=== PATIENT | male | born 1955 | race Caucasian/White ===

== ENCOUNTER 2016-10-24 13:37 | Outpatient (CLI) | payer MEDICAID ==
[2016-10-24 21:09] LABS: BASOPHILS # (AUTO) 0.1 10^3/uL (0.0-0.1); BASOPHILS % (AUTO) 1.3 %; EOSINOPHILS # (AUTO) 0.4 10^3/uL (0.0-0.7); EOSINOPHILS % (AUTO) 6.1 %; HCT - HEMATOCRIT 39.6 % (42.0-52.0); HGB - HEMOGLOBIN 13.4 g/dL (14.0-18.0); LYMPHOCYTES % (AUTO) 27.1 %; MEAN CORPUSCULAR HEMOGLOBIN 31.9 pg (27.0-31.0); MEAN CORPUSCULAR HGB CONC 33.9 g/dL (32.0-36.0); MEAN CORPUSCULAR VOLUME 94.1 fL (80.0-94.0); MEAN PLATELET VOLUME 8.4 fL (7.4-11.4); MONOCYTES # (AUTO) 0.5 10^3/uL (0.0-1.0); MONOCYTES % (AUTO) 6.6 %; NEUTROPHILS # (AUTO) 4.4 10^3/uL (1.5-6.6); NEUTROPHILS % (AUTO) 58.9 %; RED BLOOD COUNT 4.21 10^6/uL (4.70-6.10); RED CELL DISTRIBUTION WIDTH 13.6 % (12.0-15.0); UNCORRECTED WHITE BLOOD COUNT 7.4 x10^3/uL; WHITE BLOOD COUNT 7.4 x10^3/uL (4.8-10.8)
[2016-10-24 21:20] LABS: ALBUMIN/GLOBULIN RATIO 1.7 (1.0-2.2); BILIRUBIN,TOTAL 1.2 mg/dL (0.2-1.0); BUN - BLOOD UREA NITROGEN 16 mg/dL (6-20); CALCIUM 9.4 mg/dL (8.5-10.3); CARBON DIOXIDE - CO2 24 mmol/L (21-32); CHLORIDE 104 mmol/L (101-111); CHOL/HDL RATIO 2.5 (<5.0); CHOLESTEROL 108 mg/dL; CREATININE 0.8 mg/dL (0.6-1.2); GFR - MDRD 99 (>89); GLUCOSE 109 mg/dL (70-100); HDL CHOLESTEROL 43 mg/dL; LDL/HDL RATIO 1.3 (<3.6); POTASSIUM 3.7 mmol/L (3.5-5.0); SODIUM 137 mmol/L (135-145); TOTAL PROTEIN 7.3 g/dL (6.7-8.2); TRIGLYCERIDES 51 mg/dL; VLDL CHOLESTEROL 10 mg/dL
== END 2016-10-24 13:38 | disposition home or self-care (01) ==
LOC: LAB.N 13:37
PROVIDERS: ATTEND Family Medicine
DX: Z51.81 Encounter for therapeutic drug level monitoring (principal); E78.5 Hyperlipidemia, unspecified; F32.9 Major depressive disorder, single episode, unspecified
CPT/HCPCS: 36415; 80050; 80061

== ENCOUNTER 2017-03-15 15:04 | Outpatient (CLI) | payer MEDICAID ==
--- NOTE | 2017-03-16 10:52 | XRAY Report ---
DATE OF SERVICE: 03/15/2017 THREE VIEW LEFT SHOULDER: 03/15/2017 CLINICAL INDICATION: Shoulder pain. FINDINGS: Frontal, oblique, and scapular Y views of the left shoulder demonstrate moderate osteoarthritis of the glenohumeral joint. The humeral head appears high riding, suggestive of chronic rotator cuff tear, and there appears to be a Hill-Sachs deformity of the humeral head, compatible with previous dislocation. There is no evidence of acute fracture or dislocation. No radiopaque foreign body is seen in the soft tissues. IMPRESSION: DEGENERATIVE CHANGES AND LIKELY CHRONIC ROTATOR CUFF TEAR. TD: 03/16/2017 11:51
--- NOTE | 2017-03-16 10:53 | XRAY Report ---
DATE OF SERVICE: 03/15/2017 THREE VIEW CERVICAL SPINE: 03/15/2017 CLINICAL INDICATION: Chronic pain. FINDINGS: AP, lateral, odontoid views of the cervical spine demonstrate moderate degenerative disk and facet disease. There is no evidence of acute fracture or subluxation. The prevertebral soft tissues are unremarkable. IMPRESSION: MODERATE DEGENERATIVE DISK AND FACET DISEASE. TD: 03/16/2017 11:52
--- NOTE | 2017-03-16 10:55 | XRAY Report ---
DATE OF SERVICE: 03/15/2017 THREE VIEW THORACIC SPINE: 03/15/2017 CLINICAL INDICATION: Chronic back pain. FINDINGS: AP, lateral, swimmer's views of the thoracic spine demonstrate moderate degenerative disk disease. Minimal degenerative dextroscoliosis is present. There is no evidence of compression fracture. No paraspinal hematoma is seen. IMPRESSION: MODERATE DEGENERATIVE DISK DISEASE. TD: 03/16/2017 11:54
--- NOTE | 2017-03-16 10:56 | XRAY Report ---
DATE OF SERVICE: 03/15/2017 THREE VIEW LUMBAR SPINE: 03/15/2017 CLINICAL INDICATION: Chronic back pain. FINDINGS: AP, lateral, and coned down views of the lumbar spine demonstrate moderate degenerative disk and facet disease. Disk space narrowing is worst at L4-L5. There is no evidence of compression fracture or subluxation. IMPRESSION: MODERATE DEGENERATIVE CHANGES. TD: 03/16/2017 11:55
== END 2017-03-15 15:05 | disposition home or self-care (01) ==
LOC: DI 15:04
PROVIDERS: ATTEND Family Medicine
DX: M19.012 Primary osteoarthritis, left shoulder (principal); M50.30 Other cervical disc degeneration, unspecified cervical region; M47.892 Other spondylosis, cervical region; M51.34 Other intervertebral disc degeneration, thoracic region; M51.36 Other intervertebral disc degeneration, lumbar region; M47.896 Other spondylosis, lumbar region
CPT/HCPCS: 72040; 72070; 72100

== ENCOUNTER 2018-01-17 13:24 | Outpatient (CLI) | payer MEDICAID ==
[2018-01-17 20:14] LABS: HB2 TOTAL 16.4 g/dL; HEMOGLOBIN A1C 0.68 g/dL; HEMOGLOBIN A1C % 5.9 % (4.6-6.2)
== END 2018-01-17 23:59 ==
LOC: LAB.N 13:24
PROVIDERS: ATTEND Family Medicine
DX: I10 Essential (primary) hypertension (principal); D53.9 Nutritional anemia, unspecified; Z51.81 Encounter for therapeutic drug level monitoring; F20.0 Paranoid schizophrenia
CPT/HCPCS: 36415; 83036

== ENCOUNTER 2019-01-02 15:01 | Outpatient (CLI) | payer MEDICAID ==
[2019-01-02 18:53] LABS: BASOPHILS # (AUTO) 0.1 10^3/uL (0.0-0.1); BASOPHILS % (AUTO) 1.3 %; EOSINOPHILS # (AUTO) 0.3 10^3/uL (0.0-0.7); EOSINOPHILS % (AUTO) 5.7 %; HGB - HEMOGLOBIN 12.5 g/dL (14.0-18.0); LYMPHOCYTES # (AUTO) 1.8 10^3/uL (1.5-3.5); LYMPHOCYTES % (AUTO) 31.6 %; MEAN CORPUSCULAR HEMOGLOBIN 31.4 pg (27.0-31.0); MEAN CORPUSCULAR HGB CONC 31.7 g/dL (32.0-36.0); MEAN PLATELET VOLUME 8.7 fL (7.4-11.4); MONOCYTES # (AUTO) 0.4 10^3/uL (0.0-1.0); MONOCYTES % (AUTO) 7.9 %; NEUTROPHILS % (AUTO) 53.3 %; PLT - PLATELET COUNT 433 10^3/uL (130-450); RED BLOOD COUNT 3.98 10^6/uL (4.70-6.10); RED CELL DISTRIBUTION WIDTH 13.2 % (12.0-15.0); WHITE BLOOD COUNT 5.6 x10^3/uL (4.8-10.8)
[2019-01-02 19:07] LABS: ALBUMIN 4.1 g/dL (3.2-5.5); ALBUMIN/GLOBULIN RATIO 1.4 (1.0-2.2); ALKALINE PHOSPHATASE 62 IU/L (42-121); ALT ALANINE AMINOTRANSFERASE 22 IU/L (10-60); AST ASPARTATE AMINOTRANSFERASE 21 IU/L (10-42); BILIRUBIN,TOTAL 0.4 mg/dL (0.2-1.0); BUN - BLOOD UREA NITROGEN 10 mg/dL (6-20); CALCIUM 9.2 mg/dL (8.5-10.3); CARBON DIOXIDE - CO2 28 mmol/L (21-32); CHLORIDE 101 mmol/L (101-111); CHOL/HDL RATIO 4.1 (<5.0); CHOLESTEROL 222 mg/dL; CREATININE 0.8 mg/dL (0.6-1.2); GFR - MDRD 98 (>89); GLUCOSE 104 mg/dL (70-100); HDL CHOLESTEROL 54 mg/dL; LDL CHOLESTEROL,CALCULATED 127 mg/dL; LDL/HDL RATIO 2.4 (<3.6); SODIUM 136 mmol/L (135-145); VLDL CHOLESTEROL 41 mg/dL
== END 2019-01-02 23:59 | disposition home or self-care (01) ==
LOC: LAB.N 15:01
PROVIDERS: ATTEND Physician Assistant Medical
DX: E78.5 Hyperlipidemia, unspecified (principal); D53.9 Nutritional anemia, unspecified; F32.9 Major depressive disorder, single episode, unspecified; F20.0 Paranoid schizophrenia; I10 Essential (primary) hypertension
CPT/HCPCS: 36415; 80050; 80061; 83721

== ENCOUNTER 2021-06-13 11:29 | Outpatient (CLI) | payer MEDICAID ==
--- NOTE | 2021-06-13 20:43 | XRAY Report ---
PROCEDURE: Ankle 3 View LT INDICATIONS: PAIN IN LEFT ANKLE TECHNIQUE: 3 views of the ankle were acquired. COMPARISON: None FINDINGS: Bones: No fractures or dislocations. Ankle mortise is normally aligned. No suspicious bony lesions . Soft tissues: No tibiotalar joint effusion. Achilles tendon appears normal. IMPRESSION: No visualized acute fracture or dislocation. However, occult injury cannot be excluded. Recommend short interval imaging follow-up in 7-10 days as clinically indicated for additional evalua tion. Reviewed by: Dede Rodrigues MD on 06/13/2021 8:42 PM PDT Approved by: Dede Rodrigues MD on 06/13/2021 8:42 PM PDT Station ID: [id number]
== END 2021-06-13 11:30 | disposition home or self-care (01) ==
LOC: DI.N 11:29
PROVIDERS: ATTEND Family Medicine
DX: M25.572 Pain in left ankle and joints of left foot (principal)

== ENCOUNTER 2021-06-13 11:33 | Outpatient (CLI) | payer MEDICAID ==
--- NOTE | 2021-06-13 17:02 | XRAY Report ---
PROCEDURE: Lumbar Spine Complete INDICATIONS: FOOT DROP LEFT TECHNIQUE: 5 views of the lumbar spine were acquired. COMPARISON: None. FINDINGS: Bones: 5 [id number] vertebrae are present. There is approximately 4 mm of L2 on L3 retrolisthe sis. There is approximate 3 mm of L3 on L4 retrolisthesis. No vertebral body compression fractures. No suspicious bony lesions. Moderate L2-L3, L4-L5 and L5-S1 degenerative disease. Mild L3-L4 degenera tive disc disease. Moderate L3-L4, L4-L5 and L5-S1 facet arthropathy. Soft tissues: Overlying bowel gas pattern is normal. No suspicious soft tissue calcifications. Oblique views demonstrate no pars interarticularis defects. IMPRESSION: 1. Multilevel degenerative disc disease. 2. Multilevel facet arthropathy. 3. No fracture. No acute osseous lesion. If there is continued clinical concern for pathology, then M RI should be considered for further evaluation. Reviewed by: Shannan Caballero MD, PhD on 06/13/2021 5:01 PM PDT Approved by: Shannan Caballero MD, PhD on 06/13/2021 5:01 PM PDT Station ID: [id number]
== END 2021-06-13 11:34 | disposition home or self-care (01) ==
LOC: DI.N 11:33
PROVIDERS: ATTEND Family Medicine
DX: M21.372 Foot drop, left foot (principal); M47.816 Spondylosis without myelopathy or radiculopathy, lumbar region; M43.16 Spondylolisthesis, lumbar region; M47.817 Spondylosis without myelopathy or radiculopathy, lumbosacral region; M51.36 Other intervertebral disc degeneration, lumbar region; M51.37 Other intervertebral disc degeneration, lumbosacral region; M25.572 Pain in left ankle and joints of left foot

== ENCOUNTER 2021-06-22 15:35 | Outpatient (CLI) | payer MEDICAID ==
--- NOTE | 2021-06-22 16:46 | Ultrasound Report ---
PROCEDURE: Duplex Lwr Ext Arterial Bilat INDICATIONS: CALF CLAUDICATION TECHNIQUE: Color and pulse Doppler interrogation was performed of both lower extremity arterial systems, with im age documentation. COMPARISON: None FINDINGS: Right lower extremity: Common femoral artery: 119.6 cm/sec, with triphasic flow. Deep femoral artery: 84.9 cm/sec, with triphasic flow. Proximal superficial femoral artery: 76.3 cm/sec, with triphasic flow. Mid superficial femoral artery: 89.2 cm/sec, with I phasic flow. Distal superficial femoral artery: 85.4 cm/sec, with triphasic flow. Popliteal artery: 44.7 cm/sec, with phasic flow. Posterior tibial artery: 47.9 cm/sec, with triphasic flow. Anterior tibial artery/dorsalis pedis: 44.3 cm/sec, with triphasic flow. Silvestre-scale imaging description: Moderate calcific plaque from the [employer] to SFA/DFA bifurcation Left lower extremity: Common femoral artery: 103.6 cm/sec, with triphasic flow. Deep femoral artery: 94.7 cm/sec, with triphasic flow. Proximal superficial femoral artery: 130.3 cm/sec, with triphasic flow. Mid superficial femoral artery: 118.2 cm/sec, with triphasic flow. Distal superficial femoral artery: 83.3 cm/sec, with triphasic flow. Popliteal artery: 81.4 cm/sec, with triphasic flow. Posterior tibial artery: 48.8 cm/sec, with triphasic flow. Anterior tibial artery/dorsalis pedis: 69.9 cm/sec, with triphasic flow. Silvestre-scale imaging description: Moderate ossific plaque from the [employer]ER to the SFA/DFA bifurcation IMPRESSION: No significant stenosis is identified in the lower extremities bilaterally. Reviewed by: Román Kirk on 06/22/2021 4:45 PM PDT Approved by: Román Kirk on 06/22/2021 4:45 PM PDT Station ID: [id number]
== END 2021-06-22 15:36 | disposition home or self-care (01) ==
LOC: DI 15:35
PROVIDERS: ATTEND Family Medicine
DX: I73.9 Peripheral vascular disease, unspecified (principal); M21.372 Foot drop, left foot
CPT/HCPCS: 93925

== ENCOUNTER 2022-12-26 12:17 | Outpatient (CLI) | payer MEDICARE, MEDICAID ==
[2022-12-26 17:58] LABS: BASOPHILS # (AUTO) 0.1 10^3/uL (0.0-0.1); BASOPHILS % (AUTO) 1.2 %; EOSINOPHILS # (AUTO) 0.5 10^3/uL (0.0-0.7); EOSINOPHILS % (AUTO) 7.5 %; HCT - HEMATOCRIT 34.5 % (42.0-52.0); HGB - HEMOGLOBIN 11.2 g/dL (14.0-18.0); LYMPHOCYTES # (AUTO) 2.3 10^3/uL (1.5-3.5); MEAN CORPUSCULAR HEMOGLOBIN 32.3 pg (27.0-31.0); MEAN CORPUSCULAR HGB CONC 32.5 g/dL (32.0-36.0); MEAN CORPUSCULAR VOLUME 99.4 fL (80.0-94.0); MEAN PLATELET VOLUME 9.5 fL (7.4-11.4); MONOCYTES # (AUTO) 0.6 10^3/uL (0.0-1.0); MONOCYTES % (AUTO) 8.4 %; NEUTROPHILS # (AUTO) 3.1 10^3/uL (1.5-6.6); NEUTROPHILS % (AUTO) 47.7 %; PLT - PLATELET COUNT 421 10^3/uL (130-450); RED BLOOD COUNT 3.47 10^6/uL (4.70-6.10); RED CELL DISTRIBUTION WIDTH 13.1 % (12.0-15.0); WHITE BLOOD COUNT 6.6 x10^3/uL (4.8-10.8)
[2022-12-26 18:13] LABS: ALBUMIN 4.4 g/dL (3.2-5.5); ALBUMIN/GLOBULIN RATIO 1.8 (1.0-2.2); ALKALINE PHOSPHATASE 56 IU/L (42-121); ALT ALANINE AMINOTRANSFERASE 15 IU/L (10-60); AST ASPARTATE AMINOTRANSFERASE 18 IU/L (10-42); BILIRUBIN,TOTAL 0.4 mg/dL (0.2-1.0); BUN - BLOOD UREA NITROGEN 16 mg/dL (6-20); CALCIUM 9.5 mg/dL (8.5-10.3); CARBON DIOXIDE - CO2 28 mmol/L (21-32); CHLORIDE 105 mmol/L (101-111); CHOL/HDL RATIO 4.3 (<5.0); CHOLESTEROL 210 mg/dL; CREATININE 0.9 mg/dL (0.6-1.3); GFR - MDRD 85 (>89); GLUCOSE 114 mg/dL (74-104); HDL CHOLESTEROL 49 mg/dL; LDL CHOLESTEROL,CALCULATED 142 mg/dL; LDL/HDL RATIO 2.9 (<3.6); POTASSIUM 4.9 mmol/L (3.5-4.5); SODIUM 136 mmol/L (135-145); TOTAL PROTEIN 6.9 g/dL (6.4-8.9); TRIGLYCERIDES 95 mg/dL (48-352); VLDL CHOLESTEROL 19 mg/dL
[2022-12-26 21:15] LABS: ESTIMATED AVERAGE GLUCOSE 114 mg/dL (70-100); HEMOGLOBIN A1c% 5.6 % (4.27-6.07)
== END 2022-12-26 12:18 | disposition home or self-care (01) ==
LOC: LAB.N 12:17
PROVIDERS: ATTEND Family Medicine
DX: I10 Essential (primary) hypertension (principal); F32.A Depression, unspecified
CPT/HCPCS: 36415; 80053; 80061; 83036; 83721; 85025

== ENCOUNTER 2022-12-29 08:00 | Outpatient (CLI) | payer MEDICARE, MEDICAID ==
[2022-12-29 18:12] LABS: FECAL OCCULT BLOOD (FIT) NEGATIVE (NEGATIVE)
== END 2022-12-29 23:59 | disposition home or self-care (01) ==
LOC: LAB.R 08:00
PROVIDERS: ATTEND Family Medicine
DX: Z12.11 Encounter for screening for malignant neoplasm of colon (principal)
CPT/HCPCS: 82274

== ENCOUNTER 2023-01-12 13:29 | Outpatient (CLI) | payer MEDICARE, MEDICAID ==
--- NOTE | 2023-01-14 10:56 | CT Report ---
PROCEDURE: Low Dose Lung Cancer Screen INDICATIONS: SMOKER TECHNIQUE: A CT scan of the chest was performed. Intravenous contrast media was not administered. Images were re corded and evaluated at appropriate window settings. Reformats: axial MIP of the chest, coronal and s agittal. For radiation dose reduction, the following was used: automated exposure control, adjustment of mA and/or kV according to patient size. COMPARISON: None. FINDINGS: Image quality: Excellent. Prior cancer history: No. Lungs and pleura: Right fissure is solid pulmonary nodule versus lymph node measuring 4 mm (3/185). M iddle lobe solitary pulmonary nodule measuring 2 mm (3/238). A few scattered subcentimeter calcified granulomas (for example /72, 205). No pleural effusion or pneumothorax. Mediastinum: Heart size is normal. No pericardial effusion. No large vessel abnormality. No mediastin al adenopathy by size criteria. Mild ossification of the thoracic aorta. Mild coronary vessel calcif ications. Chest wall and lower neck: Thyroid is unremarkable. No axillary or supraclavicular adenopathy by size . Bones: No aggressive osseous abnormality. No acute fracture. Moderate multilevel degenerative changes of the spine. Upper Abdomen: Limited noncontrast images demonstrate no acute findings. Mild calcification of the ab dominal aorta. IMPRESSION: 1. Two solid, noncalcified pulmonary nodules measuring up to 4 mm. Lung RAD: 2 - Benign. Recommendation: Continue annual screening in 12 Months with LDCT 2. Mild coronary vessel calcifications. Reviewed by: Sancho Luz MD on 01/14/2023 10:54 AM [facility] Approved by: Sancho Luz MD on 01/14/2023 10:54 AM PST Station ID: [id number]
== END 2023-01-12 13:30 | disposition home or self-care (01) ==
LOC: DI 13:29
PROVIDERS: ATTEND Family Medicine
DX: Z12.2 Encounter for screening for malignant neoplasm of respiratory organs (principal); R91.8 Other nonspecific abnormal finding of lung field; I25.10 Atherosclerotic heart disease of native coronary artery without angina pectoris; F17.210 Nicotine dependence, cigarettes, uncomplicated